=== PATIENT | female | born 2000 | race Caucasian/White ===

== ENCOUNTER 2024-03-06 17:30 | Emergency (ER) | payer SELFPAY ==
[2024-03-06 17:34] VITALS: BP 112/72
--- NOTE | 2024-03-06 19:34 | ED.GENMED ---
History of Present Illness
General
Chief Complaint: Skin Surface Trauma
Source: patient
Exam Limitations: none
Time Seen by Provider: 03/06/24 17:46
Nursing documentation reviewed up to this point in time: agreed with
Travel History
Have you had any contact with someone who has COVID-19?: No
Do you have any symptoms of coronavirus? Fever > 100 degrees, chills, cough, shortness of breath, sore throat, loss of taste or smell, muscle aches, or headache?: No
History of Present Illness
History of Present Illness:
pt is 24 y/o F with no pmh
here with heel pain after stepping on a crystal that she uses to mediate (it is a rock/gem)
she had pain in her heel ever since
she has not had any bleeding
tetanus is outdated
nothing taken for pain
denies that there were any needles around
Past History
Past History
ED Past Medical History: GERD, Psychiatric (Depression. PTSD) and Other (Migraines, chronic jaw pain)
ED Past Surgical History: Tonsilectomy (and adnoids)
Social History
Tobacco: Non-smoker
Alcohol: None
Drug: None
Personal: Single
Living: with family
Employment: Employed
Family History
Family History: Negative Diabetes
Review of Systems
Review of Systems
Allergies reviewed?: Yes
All Other Systems: Not applicable
Phy Exam
Physical Exam
Physical Exam:
GENERAL: Alert , in no apparent distress, comfortable at rest
HEAD: NCAT
CV: 2+
NEUROLOGICAL: Alert and oriented, no focal neuro deficits, , 5/5 strength, sensation intact,
SKIN: Warm and dry, puncture woundvery small
MUSCULOSKELETAL: heel puncture wound no cellulitis, no redness, no drainage
mild tenderness
PSYCH: Normal and appropriate interaction.
Course
Orders/Labs/Results
Orders:
Orders
03/06/24 17:33
Heel, Right 2 View [CR Heel/os [place] - Right 2 Vw] Urgent
Comment:
Reason For Exam: possible foreign body
03/06/24 19:39
Cephalexin Monohydrate [Keflex] 500 mg PO NOW STA
Ibuprofen [Motrin] 600 mg PO NOW STA
Tetanus/Diphth/Acelpertussis [Adacel] 0.5 ml IM .ONCE ONE
Vital Signs
Initial and Last Documented VS:
Initial Vital Signs
Temp Pulse Resp BP Pulse Ox
98.5 F 82 18 112/72 96
03/06/24 17:34 03/06/24 17:34 03/06/24 17:34 03/06/24 17:34 03/06/24 17:34
Last Documented Vital Signs
Temp Pulse Resp BP Pulse Ox
98.5 F 78 18 112/72 99
03/06/24 17:34 03/06/24 20:57 03/06/24 20:57 03/06/24 17:34 03/06/24 20:57
Procedures
Foreign Body Removal-Skin
Wound explored and foreign body removed?: No
Anesthesia: local
Foreign body removed using: forceps, incision and unable to locate FB
Foreign body removed: none removed
MDM/Problems Addressed
Differential Diagnosis Includes:
foreing body, puncture wound
MDM/Problems Addressed:
24 y/o F
no pmh
here with heel pain after stepping on a stone/gem she uses to meditate with
she was unaware of any needles or otherwise fb on the grond but stepped on the gem and felt pain and then had pain with walking which is what brought her in
small puncture wound in the center of her heel
xray showed a linear density in the soft tissue that could represent a fb
pt verbally consented to allow me to attempt to remove
i extended the puncture wound slightly and probed but unforutuantely despite using US and getting 2nd opinion with ED attending dr. briceno, unable to locate the FB
pt instructed to soak in warm water a few times a day
keflex abx (was not puncture through a shoe)
tetanus udated
f/u with podiatry
*Critical Care Note
Total Time (30-74mins, 75-104mins- exclusive of procedures): Not Applicable
ED Attending Note
-
Portions of this chart may have been created with voice recognition software.� Occasional wrong word or��sound alike� substitutions may have occurred due to the inherent limitations of voice recognition software.
Discharge Plan
Departure
Patient Disposition: Home (Routine Discharge)
Date of Disposition: 03/06/24
Time of Disposition: 19:40
Patient with high blood pressure during this ER visit?: No
Condition: Fair
Covid-19: Not Applicable
Discharge Problem:
Puncture wound of plantar aspect of foot, Foreign body in foot
Instructions: Wound Care (DC), Foreign Body in Skin (DC)
Prescriptions:
New
cephalexin 500 mg capsule
500 mg PO Q8H Qty: 21 0RF
No Action
ibuprofen 600 mg Tablet
600 mg PO Q6HPRN PRN (Reason: moderate pain/cramps) 30 Days Qty: 5 0RF
oxymetazoline [Nasal Decongestant (oxymetazl)] 0.05 % [place],Non-Aerosol
2 spray intranasal BID 3 Days Qty: 1 0RF
Saline Nasal 0.65 % Aerosol,[place]
2 spray intranasal QIDPRN PRN (Reason: dryness) Qty: 1 0RF
prednisone 10 mg tablet
10 mg PO DIRECTED Qty: 32 0RF
Rx Instructions:
4 a day x5days, then 2/day x3days, then 1/day x3days, then 1 every other day x3 doses. start tomorrow.
prazosin 1 mg Capsule
1 mg PO HS 30 Days Qty: 30 1RF
Referrals:
[facility] [Outside[facility] - Follow up in 1 week
Garry Lozano DPM [Active] - Follow up in 1 week
UNKNOWN - PT DOES,NOT KNOW [Family Provider] -
Stand Alone Forms: Return to Work
Activity Restrictions/Additional Instructions:
UNFORTUNATELY YOU MAY STILL HAVE THE FOREIGN BODY IN YUOR FOOT WE SAW ON XRAY
SOAK A FEW TIMES A DAY IN SALINE OR WARM WATER
TO SEE IF IT WILL COME OUT
TAKE KEFLEX 3 TIMES A DAY FOR 7 DAYS TO PREVENT INFECTION
TAKE TYLENOL AND MOTRIN FOR PAIN NEEDED
WATCH FOR SIGNS OF INFECTION
YOU SHOULD FOLLOW UP WITH A ORTHO PEDIST OR FOOT DOCTOR TO SEE IF THEY CAN REMOVE THE FOREIGN BODY
WALK WITH CRUTCHES NEEDED TO AVOID WEIGHT BEARING
Interventions
Interventions:
*Risk Screen - Suicide Last Done: 03/06/24 17:34
*General Assessment Last Done: 03/06/24 17:34
*Neglect/Abuse Screening Last Done: 03/06/24 17:34
ED- Fall Risk Assessment Last Done: 03/06/24 18:04
*ED COVID-19 Vaccine History Last Done: 03/06/24 17:34
*Nursing Disposition Last Done: 03/06/24 20:57
ED-Skin Assessment Last Done: 03/06/24 18:04
Discharge Date and Time
Discharge Date/Time: 03/06/24 20:45
Print Language: SENEGALESE
[2024-03-06] MEDS: KEFLEX 500 MG PO (19:57)
[2024-03-06] MEDS: MOTRIN 600 MG PO (19:57)
[2024-03-06] MEDS: ADACEL 0.5 ML IM (19:58)
== END 2024-03-06 20:45 | disposition home or self-care (01) ==
LOC: EMR 17:30
PROVIDERS: EMERGENCY PHYSICIAN Emergency Medicine
DX: S91.331A Puncture wound without foreign body, right foot, initial encounter (principal); W45.8XXA Other foreign body or object entering through skin, initial encounter; Z23 Encounter for immunization
CPT/HCPCS: 99284; 90471; 73650; 90715

== ENCOUNTER 2024-03-19 23:48 | Emergency (ER) | payer SELFPAY ==
[2024-03-19 23:51] VITALS: BP 104/70
[2024-03-20 00:08] VITALS: BMI 18.0
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
[2024-03-20 00:34] LABS: HCG, Serum Qualitative Screen Negative
[2024-03-20 00:35] LABS: % Basophils 0.7 % (0-2); % Eosinophils 1.5 % (0-6); % Immature Granulocytes 0.9 % (0-0.5); % Monocytes 4.3 % (1.7-9.3); % Neutrophils 64.6 % (42.2-75.2); Absolute Basophils 0.1 10^3/uL (0-0.2); Absolute Eosinophils 0.1 10^3/uL (0-0.7); Absolute Immature Granulocytes 0.1 10^3/uL (0-0.05); Absolute Lymphocytes 1.9 10^3/uL (1.2-3.4); Absolute Monocytes 0.3 10^3/uL (0.1-0.6); Absolute Neutrophils 4.4 10^3/uL (1.4-6.5); Hemoglobin 14.6 g/dL (12.0-16.0); Mean Corp Hgb Conc. 34.8 g/dL (33.0-37.0); Mean Corpuscular Hgb 29.7 pg (27.0-31.0); Mean Corpuscular Volume 85.5 fL (81.0-99.0); Mean Platelet Volume 9.6 fL (7.4-10.4); Nucleated Red Blood Cells % 0 %; Platelet Count 261 10^3/uL (130-400); Red Blood Cell Count 4.91 10^6/uL (4.20-5.40); Red Cell Dist. Width 12.1 % (11.5-14.5); White Blood Cell Count 6.8 10^3/uL (4.8-10.8)
--- NOTE | 2024-03-20 00:45 | ED.GENMED ---
History of Present Illness
General
Chief Complaint: Wound Check/Suture Removal
Source: patient
Exam Limitations: none
Time Seen by Provider: 03/20/24 00:21
Travel History
Have you had any contact with someone who has COVID-19?: No
Do you have any symptoms of coronavirus? Fever > 100 degrees, chills, cough, shortness of breath, sore throat, loss of taste or smell, muscle aches, or headache?: No
History of Present Illness
History of Present Illness:
24-year-old female presents with suicidal ideation. Patient has thoughts of hanging herself. Patient also recently was evaluated for heel pain and it was suggested that there could be possible foreign body. She was written for antibiotics but she
states her insurance did not cover it so she did not take it. She was using ibuprofen. She did present with a dressing intact. The patient does report discomfort in the area but denies fevers or drainage. No other medical complaints
Past History
Past History
ED Past Medical History: GERD, Psychiatric (Depression. PTSD) and Other (Migraines, chronic jaw pain)
ED Past Surgical History: Tonsilectomy (and adnoids)
Social History
Tobacco: Non-smoker
Alcohol: None
Drug: None
Personal: Single
Living: with family
Employment: Employed
Phy Exam
Physical Exam
Physical Exam:
CONSTITUTIONAL Vital signs reviewed, Patient alert and oriented to person, place and time. Somewhat disheveled
HEAD atraumatic, normocephalic.
EYES eyelids normal to inspection, Extraocular muscles intact, Conjunctiva normal, Sclera normal.
NECK normal range of motion, Trachea midline, no jugular venous distention.
RESP no respiratory distress
BACK No obvious deformities
UPPER EXTREMITY Gross Range of motion normal, gross motor strength normal
LOWER EXTREMITY Gross range of motion normal, Gross motor strength normal. Healing wound to right calcaneus. Mild tenderness with no surrounding swelling, no drainage, no bleeding
NEURO Speech normal, No focal motor deficits include, [place] coma scale 15, Memory normal, Cranial Nerves intact to screening exam.
SKIN Skin warm, dry, and normal in color.
PSYCHIATRIC Patient oriented to person place and time, appears somewhat anxious.
Course
Orders/Labs/Results
Orders:
Orders
03/20/24 00:06
Crisis Consult Urgent
Reason for Consult: pt suicidal
1:1 Observation - Suicide/ Violent Behavior As Directed
03/20/24 00:14
Test Result ONCE
03/20/24 00:15
Alcohol Urgent
Basic Metabolic Panel Urgent
Complete Blood Count/With Diff Urgent
HCG, Serum Qualitative Screen Urgent
03/20/24 00:38
Heel, Right 2 View [CR Heel/os [place]cis - Right 2 Vw] Urgent
Comment:
Reason For Exam: possible foreign body
03/20/24 01:29
Urine Drug Abuse Screen Urgent
Abnormal Lab Results
03/20/24
00:15
Abs Immat Gran (auto) 0.1 H 10^3/uL
(0-0.05)
Immature Gran % 0.9 H %
(0-0.5)
03/20/24 00:15
03/20/24 00:15
Vital Signs
Initial and Last Documented VS:
Initial Vital Signs
Temp Pulse Resp BP Pulse Ox
98.1 F 68 16 104/70 96
03/19/24 23:51 03/19/24 23:51 03/19/24 23:51 03/19/24 23:51 03/19/24 23:51
Last Documented Vital Signs
Temp Pulse Resp BP Pulse Ox
98.1 F 68 16 104/70 96
03/19/24 23:51 03/19/24 23:51 03/19/24 23:51 03/19/24 23:51 03/19/24 23:51
MDM/Problems Addressed
MDM/Problems Addressed:
Right foot wound, major depression, suicidal ideation
*Pulse Oximetry
Patient hypoxic: no
*Critical Care Note
Total Time (30-74mins, 75-104mins- exclusive of procedures): Not Applicable
Data Reviewed
Review of Other/Old Records Reveals: Records (Prior psychiatric March 2023 reviewed)
Source: patient
Prescriptions/Medications Considered But Not Given:
Considered antibiotics but no white count, no drainage, no redness
Patient Management
Escalation/DeEscalation of care consider admission/obs:
No foreign body noted by imaging. No sign of infection. Cleared for crisis.
ED Attending Note
-
Portions of this chart may have been created with voice recognition software.� Occasional wrong word or��sound alike� substitutions may have occurred due to the inherent limitations of voice recognition software.
Discharge Plan
Departure
Patient Disposition: [facility]
Date of Disposition: 03/20/24
Time of Disposition: :
Discharge Problem:
Wound of foot, Feeling suicidal
Prescriptions:
No Action
ibuprofen 600 mg Tablet
600 mg PO Q6HPRN PRN (Reason: moderate pain/cramps) 30 Days Qty: 5 0RF
Referrals:
NONE,* [Family Provider] -
Interventions
Interventions:
*Risk Screen - Suicide Last Done: 03/20/24 00:04
*General Assessment Last Done: 03/20/24 00:04
*Neglect/Abuse Screening Last Done: 03/20/24 00:04
ED- Fall Risk Assessment Last Done: 03/20/24 00:23
*ED COVID-19 Vaccine History Last Done: 03/20/24 00:04
ED-Psychological Assessment Last Done: 03/20/24 00:23
ED-Skin Assessment Last Done: 03/20/24 00:23
Discharge Date and Time
Print Language: BOLIVIAN
[2024-03-20 00:49] LABS: Blood Urea Nitrogen 13 mg/dl (7-17); Calcium 9.6 mg/dl (8.4-10.2); Carbon Dioxide 25 mmol/L (22-30); Chloride 102 mmol/L (98-107); Estimated Creatinine Clearance 100 ml/min; Glucose 85 mg/dl (70-99); Sodium 135 mmol/L (135-145); eGFR > 60.00
[2024-03-20 00:53] LABS: Alcohol None Detected
[2024-03-20 02:30] LABS: Amphetamines Negative (Negative); Barbiturates Negative (Negative); Benzodiazepines Negative (Negative); Buprenorphine Negative (Negative); Cocaine Negative (Negative); Marijuana Positive (Negative); Methadone Negative (Negative); Methamphetamines Negative (Negative); Opiates Negative (Negative); Phencyclidine Negative (Negative); Tricyclic Antidepressants Negative (Negative)
== END 2024-03-20 01:48 ==
LOC: EMR 23:48
PROVIDERS: EMERGENCY PHYSICIAN Emergency Medicine
DX: R45.851 Suicidal ideations (principal); S91.301A Unspecified open wound, right foot, initial encounter; X58.XXXA Exposure to other specified factors, initial encounter; F32.A Depression, unspecified; K21.9 Gastro-esophageal reflux disease without esophagitis; F43.10 Post-traumatic stress disorder, unspecified; G43.909 Migraine, unspecified, not intractable, without status migrainosus; G89.29 Other chronic pain; R68.84 Jaw pain
CPT/HCPCS: 99284; 73650; 80048; 80306; 82077; 84703; 85025

== ENCOUNTER 2024-09-22 21:11 | Emergency (ER) | payer OTHER, SELFPAY ==
[2024-09-22 21:16] VITALS: BP 132/83
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
[2024-09-22] MEDS: MOTRIN 600 MG PO (23:20)
== END 2024-09-22 23:27 | disposition home or self-care (01) ==
LOC: EMR 21:11
PROVIDERS: EMERGENCY PHYSICIAN Emergency Medicine
DX: S93.402A Sprain of unspecified ligament of left ankle, initial encounter (principal); X50.1XXA Overexertion from prolonged static or awkward postures, initial encounter; K21.9 Gastro-esophageal reflux disease without esophagitis; F32.A Depression, unspecified; F43.10 Post-traumatic stress disorder, unspecified; Y93.01 Activity, walking, marching and hiking
CPT/HCPCS: 99283; 73610

== ENCOUNTER 2025-01-13 20:22 | Emergency (ER) | payer OTHER, SELFPAY ==
[2025-01-13 20:25] VITALS: BP 143/90
[2025-01-13 20:48] VITALS: BMI 19.2
--- NOTE | 2025-01-13 21:29 | ED.GENMED ---
History of Present Illness
General
Chief Complaint: Musculo-Skeletal Complaint
Time Seen by Provider: 01/13/25 20:54
History of Present Illness
History of Present Illness:
24-year-old female presents the emergency department for evaluation of right knee pain has been ongoing for the past several days. Occasionally wakes up at night and has difficulty moving the knee. Denies any falls or trauma. She is able to
ambulate for the majority the day without pain but it seems to worsen going up and down stairs. Works at [employer] and is on her feet all day
Past History
Past History
ED Past Medical History: GERD, Psychiatric (Depression. PTSD) and Other (Migraines, chronic jaw pain)
ED Past Surgical History: Tonsilectomy (and adnoids)
Social History
Tobacco: Non-smoker
Alcohol: None
Drug: None
Personal: Single
Living: with family
Employment: Employed
Family History
Family History: Negative Diabetes
Review of Systems
Review of Systems
Allergies reviewed?: Yes
All Other Systems: ROS reviewed and negative except as documented in HPI and ROS
Phy Exam
Physical Exam
Physical Exam:
GEN: Well appearing, NAD, WDWN
HEENT: Oral mucosa moist, no scleral icterus
Cardiac: Regular rate
Lung: No respiratory distress, no tachypnea
MSK: No gross deformity or injuries, right knee range of motion normal, no patellar tendon tenderness, no crepitus
Skin: Good color, no pallor or jaundice, no rashes
Neuro: AO x3, moves all extremities freely
Psych: Calm, cooperative
Course
Orders/Labs/Results
Orders:
Orders
01/13/25 20:23
Knee, Right 4 or More Views [CR Knee- Right 4 Or More View*] Urgent
Comment:
Reason For Exam: pain
Vital Signs
Initial and Last Documented VS:
Initial Vital Signs
Temp Pulse Resp BP Pulse Ox
98.2 F 101 20 143/90 99
01/13/25 20:25 01/13/25 20:25 01/13/25 20:25 01/13/25 20:25 01/13/25 20:25
Last Documented Vital Signs
Temp Pulse Resp BP Pulse Ox
98.2 F 101 20 143/90 99
01/13/25 20:25 01/13/25 20:25 01/13/25 20:25 01/13/25 20:25 01/13/25 20:25
MDM/Problems Addressed
MDM/Problems Addressed:
Likely overuse injury, questionable tendinitis, discussed supportive care
*Critical Care Note
Total Time (30-74mins, 75-104mins- exclusive of procedures): Not Applicable
ED Attending Note
-
Portions of this chart may have been created with voice recognition software.� Occasional wrong word or��sound alike� substitutions may have occurred due to the inherent limitations of voice recognition software.
Discharge Plan
Departure
Patient Disposition: Home (Routine Discharge)
Date of Disposition: 01/13/25
Time of Disposition: 21:31
Patient with high blood pressure during this ER visit?: No
Discharge Problem:
Acute pain of right knee
Instructions: Knee Pain (DC)
Prescriptions:
New
celecoxib [Celebrex] 200 mg capsule
200 mg PO BID Qty: 14 0RF
No Action
ibuprofen 600 mg Tablet
600 mg PO Q6HPRN PRN (Reason: moderate pain/cramps) 30 Days Qty: 5 0RF
Interventions
Interventions:
*Risk Screen - Suicide Last Done: 01/13/25 20:50
*General Assessment Last Done: 01/13/25 20:25
*Neglect/Abuse Screening Last Done: 01/13/25 20:50
ED- Fall Risk Assessment Last Done: 01/13/25 20:49
*ED COVID-19 Vaccine History Last Done: 01/13/25 20:50
*Nursing Disposition Last Done: 01/13/25 21:44
ED-Musculoskeletal Assessment Last Done: 01/13/25 20:50
Discharge Date and Time
Discharge Date/Time: 01/13/25 21:44
Print Language: MALAY
== END 2025-01-13 21:44 | disposition home or self-care (01) ==
LOC: EMR 20:22
PROVIDERS: EMERGENCY PHYSICIAN Emergency Medicine
DX: M25.561 Pain in right knee (principal); K21.9 Gastro-esophageal reflux disease without esophagitis; F43.10 Post-traumatic stress disorder, unspecified
CPT/HCPCS: 99283; 73564

== ENCOUNTER 2025-03-12 17:41 | Emergency (ER) | payer OTHER, SELFPAY ==
[2025-03-12 17:43] VITALS: BP 101/68
[2025-03-12 17:57] LABS: % Basophils 0.7 % (0-2); % Eosinophils 2.1 % (0-6); % Immature Granulocytes 0.1 % (0-0.5); % Lymphocytes 30.7 % (20.5-51.1); % Neutrophils 62.4 % (42.2-75.2); Absolute Basophils 0.1 10^3/uL (0-0.2); Absolute Eosinophils 0.2 10^3/uL (0-0.7); Absolute Lymphocytes 2.1 10^3/uL (1.2-3.4); Absolute Monocytes 0.3 10^3/uL (0.1-0.6); Absolute Neutrophils 4.4 10^3/uL (1.4-6.5); Hemoglobin 13.9 g/dL (12.0-16.0); Mean Corp Hgb Conc. 33.9 g/dL (33.0-37.0); Mean Corpuscular Hgb 29.6 pg (27.0-31.0); Mean Corpuscular Volume 87.4 fL (81.0-99.0); Mean Platelet Volume 9.2 fL (7.4-10.4); Nucleated Red Blood Cells % 0 %; Platelet Count 214 10^3/uL (130-400); Red Blood Cell Count 4.69 10^6/uL (4.20-5.40); Red Cell Dist. Width 11.9 % (11.5-14.5)
[2025-03-12 18:04] LABS: HCG, Serum Qualitative Screen Negative
[2025-03-12 18:25] LABS: ALT (SGPT) 18 U/L (0-35); AST (SGOT) 21 U/L (14-36); Albumin 4.6 g/dl (3.5-5.0); Alkaline Phosphatase 61 U/L (38-126); Blood Urea Nitrogen 12 mg/dl (7-17); Carbon Dioxide 27 mmol/L (22-30); Chloride 104 mmol/L (98-107); Glucose 81 mg/dl (70-99); Potassium 4.3 mmol/L (3.5-5.1); Sodium 140 mmol/L (135-145); Total Protein 6.7 g/dl (6.3-8.2); eGFR > 60.00
--- NOTE | 2025-03-12 19:23 | ED.GENMED ---
History of Present Illness
General
Chief Complaint: Headache
Source: patient
Exam Limitations: none
Time Seen by Provider: 03/12/25 18:49
Nursing documentation reviewed up to this point in time: agreed with
History of Present Illness
History of Present Illness:
24-year-old female history of migraines presents with a migraine right sided lights bother her eyes she feels nauseous did not take any meds, similar to prior headaches, no fevers no trauma, no rash
Past History
Past History
ED Past Medical History: GERD, Psychiatric (Depression. PTSD) and Other (Migraines, chronic jaw pain)
ED Past Surgical History: Tonsilectomy (and adnoids)
Social History
Tobacco: Non-smoker
Alcohol: None
Drug: None
Personal: Single
Living: with family
Employment: Employed
Family History
Family History: Negative Diabetes
Review of Systems
Review of Systems
All Other Systems: Not applicable
Constitutional: Denies fever or fatigue
Respiratory: Reports no symptoms
Cardiac: Reports no symptoms
ABD/GI: Reports nausea
Neurological: Reports headache (Right sided headache)
Phy Exam
Physical Exam
Physical Exam:
Physical Exam
General: no apparent distress, mild distress but nontoxic
Neck: No jaundice
Heart: s1/s2 regular rate and rhythm, no murmur. equal radial pulses.
Lungs: no acute respiratory distress. clear bilaterally
Abdomen: Nontender
Neuro: alert and oriented. no focal neurological deficits
Skin: no rash
Psychiatric: well kept. interactive and cooperative
Extremities: no edema.
Course
Orders/Labs/Results
Orders:
Orders
03/12/25 17:45
Test Result ONCE
03/12/25 17:48
Complete Blood Count/With Diff Urgent
Comprehensive Metabolic Panel Urgent
HCG, Serum Qualitative Screen Urgent
03/12/25 19:09
Ondansetron Orally Disint [Zofran Odt (Orally Disintegrating)] 4 mg PO NOW STA
Sumatriptan Succinate [Imitrex] 6 mg SC NOW STA
03/12/25 17:48
03/12/25 17:48
Vital Signs
Initial and Last Documented VS:
Initial Vital Signs
Temp Pulse Resp BP Pulse Ox
98.3 F 77 16 101/68 98
03/12/25 17:43 03/12/25 17:43 03/12/25 17:43 03/12/25 17:43 03/12/25 17:43
Last Documented Vital Signs
Temp Pulse Resp BP Pulse Ox
98.3 F 77 16 101/68 98
03/12/25 17:43 03/12/25 17:43 03/12/25 17:43 03/12/25 17:43 03/12/25 17:43
MDM/Problems Addressed
Differential Diagnosis Includes:
Migraine tension cluster doubt HEAD BUCKER infection no trauma no rash
MDM/Problems Addressed:
Acute on chronic migraine
Chronic conditions affecting care:
Migraine
Acute Exacerbation and/or Progression of Chronic Illness:
Migraine
*Pulse Oximetry
Patient hypoxic: no
*Critical Care Note
Total Time (30-74mins, 75-104mins- exclusive of procedures): Not Applicable
Update Note
Update Note:
Update, will try Imitrex and Zofran
8:30 PM update patient feeling better
ED Attending Note
-
Portions of this chart may have been created with voice recognition software.� Occasional wrong word or��sound alike� substitutions may have occurred due to the inherent limitations of voice recognition software.
Discharge Plan
Departure
Patient Disposition: Home (Routine Discharge)
Date of Disposition: 03/12/25
Time of Disposition: 20:32
Patient with high blood pressure during this ER visit?: No
Condition: Good
Discharge Problem:
Migraine headache
Instructions: Migraines (DC)
Prescriptions:
New
sumatriptan succinate [Imitrex] 25 mg tablet
25 mg PO ONCE PRN (Reason: migraine headache) Qty: 20 0RF
ibuprofen 600 mg tablet
600 mg PO Q6H PRN (Reason: headache) Qty: 30 0RF
ondansetron 4 mg tablet,disintegrating
4 mg PO Q8H PRN (Reason: nausea and vomiting) Qty: 20 0RF
No Action
ibuprofen 600 mg Tablet
600 mg PO Q6HPRN PRN (Reason: moderate pain/cramps) 30 Days Qty: 5 0RF
celecoxib [Celebrex] 200 mg capsule
200 mg PO BID Qty: 14 0RF
Referrals:
Porfirio Olsen MD [Non-Admitting Privileges] -
NONE,* [Family Provider] -
Interventions
Interventions:
*Risk Screen - Suicide Last Done: 03/12/25 17:45
*General Assessment Last Done: 03/12/25 18:48
*Neglect/Abuse Screening Last Done: 03/12/25 17:45
*ED COVID-19 Vaccine History Last Done: 03/12/25 18:48
ED- Neurological Assessment Last Done: 03/12/25 18:48
Discharge Date and Time
Print Language: [id number]
[2025-03-12] MEDS: IMITREX 6 MG SC (19:41)
[2025-03-12] MEDS: ZOFRAN ODT (ORALLY DISINTEGRATING) 4 MG PO (19:42)
== END 2025-03-12 20:44 | disposition home or self-care (01) ==
LOC: EMR 17:41
PROVIDERS: Emergency Medicine; EMERGENCY PHYSICIAN Emergency Medicine
DX: G43.909 Migraine, unspecified, not intractable, without status migrainosus (principal)
CPT/HCPCS: 96372; 99284; 80053; 84703; 85025

== ENCOUNTER 2025-06-19 06:38 | Emergency (ER) | payer OTHER, SELFPAY ==
[2025-06-19 06:40] VITALS: BP 105/77
--- NOTE | 2025-06-19 07:31 | ED.GENMED ---
History of Present Illness
<Sallie Stein MD, Resident - Last Filed: 06/19/25 09:09>
General
Chief Complaint: Cough
Source: patient
Time Seen by Provider: 06/19/25 07:28
History of Present Illness
History of Present Illness:
25 year old female with a past medical history of migraines and GERD comes to the ED due to many months of lingering cough. She says that she has been dealing with this cough for 5-6 months and recently found out that she may have black mold in her
apartment. She has not had any fever or chills but does report having some nausea. She says that her eyes have been itchy and she has had a lingering chest tightness as well that can be sharp in nature.
Past History
<Sallie Stein MD, Resident - Last Filed: 06/19/25 09:09>
Past History
ED Past Medical History: GERD, Psychiatric (Depression. PTSD) and Other (Migraines, chronic jaw pain)
ED Past Surgical History: Tonsilectomy (and adnoids)
Social History
Tobacco: Non-smoker
Alcohol: None
Drug: None
Personal: Single
Living: with family
Employment: Employed
Family History
Family History: Negative Diabetes
Review of Systems
<Sallie Stein MD, Resident - Last Filed: 06/19/25 09:09>
Review of Systems
Constitutional: Reports fatigue; Denies fever or chills
EENT: Reports no symptoms
Respiratory: Reports cough; Denies trouble breathing
Cardiac: Reports chest pain
ABD/GI: Reports nausea
: Reports no symptoms
Musculoskeletal: Reports no symptoms
Skin: Reports no symptoms
Neurological: Reports no symptoms
Endocrine: Reports no symptoms
Hematologic/Lymphatic: Reports no symptoms
Psychiatric: Reports no symptoms
Phy Exam
<Sallie Stein MD, Resident - Last Filed: 06/19/25 09:09>
General Physical Exam
General Presentation: well appearing and no apparent distress
General Skin: warm and dry
General Mental: alert
General Hydration: appears well hydrated
Cardiovascular Exam
Cardiovascular Exam: regular rate/rhythm, no edema and no murmur
Pulmonary Exam
Pulmonary Exam: lungs clear, no respiratory distress, no rales, no crackles, no rhonchi and no wheezing
Course
<Sallie Stein MD, Resident - Last Filed: 06/19/25 09:09>
Orders/Labs/Results
Orders:
Orders
06/19/25 07:48
CR Chest - 2 Views Urgent
Comment:
Reason For Exam: Lingering cough
06/19/25 07:49
Electrocardiogram (*1) Urgent
Reason for Study: Chest Pain
06/19/25 07:50
EKG- Treatment ONCE
Vital Signs
Initial and Last Documented VS:
Initial Vital Signs
Temp Pulse Resp BP Pulse Ox
98.5 F 67 14 105/77 95
06/19/25 06:40 06/19/25 06:40 06/19/25 06:40 06/19/25 06:40 06/19/25 06:40
Last Documented Vital Signs
Temp Pulse Resp BP Pulse Ox
98.5 F 67 14 99/76 98
06/19/25 06:40 06/19/25 06:40 06/19/25 06:40 06/19/25 08:00 06/19/25 08:15
<Antonio Rm, DO - Last Filed: 06/19/25 09:03>
Orders/Labs/Results
Orders:
Orders
06/19/25 07:48
CR Chest - 2 Views Urgent
Comment:
Reason For Exam: Lingering cough
06/19/25 07:49
Electrocardiogram (*1) Urgent
Reason for Study: Chest Pain
06/19/25 07:50
EKG- Treatment ONCE
Vital Signs
Initial and Last Documented VS:
Initial Vital Signs
Temp Pulse Resp BP Pulse Ox
98.5 F 67 14 105/77 95
06/19/25 06:40 06/19/25 06:40 06/19/25 06:40 06/19/25 06:40 06/19/25 06:40
Last Documented Vital Signs
Temp Pulse Resp BP Pulse Ox
98.5 F 67 14 99/76 98
06/19/25 06:40 06/19/25 06:40 06/19/25 06:40 06/19/25 08:00 06/19/25 08:15
<Sallie Stein MD, Resident - Last Filed: 06/19/25 09:09>
MDM/Problems Addressed
Differential Diagnosis Includes:
Pneumonia, Anxiety, Seasonal Allergies
MDM/Problems Addressed:
Will get Chest X-Ray to rule out any acute pulmonary process including pneumonia (Patient says that there is no way she can be )
Will get EKG due to her chest tightness that is sharp in nature
<Sallie Stein MD, Resident - Last Filed: 06/19/25 09:09>
*Pulse Oximetry
SaO2: 95
Oxygen Mode of Delivery: Room air
Patient hypoxic: no
*Critical Care Note
Total Time (30-74mins, 75-104mins- exclusive of procedures): Not Applicable
<Sallie Stein MD, Resident - Last Filed: 06/19/25 09:09>
Update Note
Update Note:
CXR showed no acute cardiopulmonary process
EKG showed sinus bradycardia
Will discharge patient with prescription for Albuterol inhaler to use with acute episodes
Given instructions to follow up with PCP for outpatient follow up
ED Attending Note
<Sallie Stein MD, Resident - Last Filed: 06/19/25 09:09>
-
Portions of this chart may have been created with voice recognition software.� Occasional wrong word or��sound alike� substitutions may have occurred due to the inherent limitations of voice recognition software.
<Antonio Rm, - Last Filed: 06/19/25 09:03>
ED Attending Note
Patient seen and examined by attending physician: Yes
I performed the substantive portion of visit, reviewed & personally made and approve the management plan that is documented in note by myself or MADAI.: Yes
ED Attending Note:
I evaluated the patient at bedside. Her breath sounds are clear without wheeze. Blood pressure slightly low but she is of small stature. Chest x-ray clear. She does have episodes of some chest discomfort associated with a sensation of mucus. We
agreed to try an inhaler as an outpatient.
Discharge Plan
Departure
Patient Disposition: Home (Routine Discharge)
Date of Disposition: 06/19/25
Time of Disposition: 09:05
Patient with high blood pressure during this ER visit?: No
Discharge Problem:
Cough productive of yellow sputum
Instructions: Viral Upper Respiratory Infection, Adult (DC), Cough, Adult (DC)
Prescriptions:
New
albuterol sulfate [Ventolin HFA] 90 mcg/actuation HFA aerosol inhaler
1 puff inhalation ONCE Qty: 6.7 0RF
No Action
ibuprofen 600 mg Tablet
600 mg PO Q6HPRN PRN (Reason: moderate pain/cramps) 30 Days Qty: 5 0RF
sumatriptan succinate [Imitrex] 25 mg tablet
25 mg PO ONCE PRN (Reason: migraine headache) Qty: 20 0RF
Referrals:
UNKNOWN - PT DOES,NOT KNOW [Family Provider]
Interventions
Interventions:
*Risk Screen - Suicide Last Done: 06/19/25 06:40
*General Assessment Last Done: 06/19/25 07:36
*Neglect/Abuse Screening Last Done: 06/19/25 07:36
*ED- Fall Risk Assessment Last Done: 06/19/25 07:28
*ED COVID-19 Vaccine History Last Done: 06/19/25 07:28
ED- Pulmonary Assessment Last Done: 06/19/25 07:36
Discharge Date and Time
Print Language: SAMOAN
[2025-06-19 07:32] VITALS: BP 100/75
[2025-06-19 08:00] VITALS: BP 99/76
[2025-06-19 09:19] VITALS: BP 99/63
== END 2025-06-19 09:21 | disposition home or self-care (01) ==
LOC: EMR 06:38
PROVIDERS: EMERGENCY PHYSICIAN Emergency Medicine
DX: R05.9 Cough, unspecified (principal); G43.909 Migraine, unspecified, not intractable, without status migrainosus; K21.9 Gastro-esophageal reflux disease without esophagitis; F32.A Depression, unspecified; F43.10 Post-traumatic stress disorder, unspecified
CPT/HCPCS: 99284; 71046; 93005

== ENCOUNTER 2025-08-14 18:33 | Emergency (ER) | payer OTHER, SELFPAY ==
[2025-08-14 18:43] VITALS: BP 124/83
[2025-08-14 18:59] LABS: Hematocrit 42.1 % (37.0-47.0); Hemoglobin 14.2 g/dL (12.0-16.0); Mean Corp Hgb Conc. 33.7 g/dL (33.0-37.0); Mean Corpuscular Volume 87.7 fL (81.0-99.0); Nucleated Red Blood Cells % 0 %; Platelet Count 216 10^3/uL (130-400); Red Cell Dist. Width 12.4 % (11.5-14.5)
[2025-08-14 19:16] LABS: HCG, Serum Qualitative Screen Negative
[2025-08-14 19:17] LABS: ALT (SGPT) 19 U/L (0-35); AST (SGOT) 23 U/L (14-36); Albumin 4.9 g/dl (3.5-5.0); Alkaline Phosphatase 68 U/L (38-126); Blood Urea Nitrogen 16 mg/dl (7-17); Calcium 9.7 mg/dl (8.4-10.2); Carbon Dioxide 25 mmol/L (22-30); Chloride 104 mmol/L (98-107); Glucose 86 mg/dl (70-99); Potassium 3.9 mmol/L (3.5-5.1); Sodium 137 mmol/L (135-145); Total Protein 7.5 g/dl (6.3-8.2); eGFR > 60.00
== END 2025-08-14 20:36 | disposition left against medical advice (07) ==
LOC: EMR 18:33
PROVIDERS: Emergency Medicine
DX: Z53.21 Procedure and treatment not carried out due to patient leaving prior to being seen by health care provider (principal)
CPT/HCPCS: 80053; 84703; 85025

== ENCOUNTER 2025-08-16 12:16 | Emergency (ER) | payer OTHER, SELFPAY ==
[2025-08-16] VITALS (8 sets, daily range): BP systolic 99–111; BP diastolic 67–86; BMI 18.9
[2025-08-16] MEDS: TYLENOL 1000 MG PO (13:17)
--- NOTE | 2025-08-16 13:20 | ED.GENMED ---
History of Present Illness
<Kashif Royal PA-C - Last Filed: 08/16/25 16:27>
General
Chief Complaint: Vaginal Bleeding
Source: patient
Time Seen by Provider: 08/16/25 12:50
History of Present Illness
History of Present Illness:
25-year-old female with past medical history of anxiety and depression, borderline personality disorder, GERD presenting to the emergency department for evaluation of vaginal bleeding and lower abdominal cramping that started this past Wednesday
stating the bleeding will wax and wane from minimal to moderate size clots, today slightly worse prompting her to come into the ER. Patient states that she had her menstrual 2 weeks ago but believes there is a possibility she could be .
She did not take anything for the pain prior to arrival. Denies any other physical symptoms. She does note that her menstrual's are usually very regular, last 3 days and minimal bleeding.
Past History
<Kashif Royal PA-C - Last Filed: 08/16/25 16:27>
Past History
ED Past Medical History: GERD, Psychiatric (Depression. PTSD) and Other (Migraines, chronic jaw pain)
ED Past Surgical History: Tonsilectomy (and adnoids)
Social History
Tobacco: Non-smoker
Alcohol: None
Drug: None
Personal: Single
Living: with family
Employment: Employed
Family History
Family History: Negative Diabetes
Review of Systems
<Kashif Royal PA-C - Last Filed: 08/16/25 16:27>
Review of Systems
All Other Systems: ROS reviewed and negative except as documented in HPI and ROS
Phy Exam
<Kashif Royal PA-C - Last Filed: 08/16/25 16:27>
Physical Exam
Physical Exam:
GENERAL: Alert , in no apparent distress
EYE: clear conjunctiva b/l
HEAD: NCAT
ENT: o/p clr, mmm.
CARDIAC: Regular rate and rhythm .
LUNGS: Clear breath sounds bilaterally, no acute respiratory distress, no wheezes/rales/rhonchi
ABDOMEN: Soft, without focal tenderness, no r/g, no cvat
NEUROLOGICAL: Alert and oriented
SKIN: Warm and dry, skin intact.
MUSCULOSKELETAL: well perfused.
PSYCH: Normal and appropriate interaction.
Scores
<Kashif Royal PA-C - Last Filed: 08/16/25 16:27>
Heart Failure Risk
Heart Failure Risk Score: Not Applicable
Heart Score for Chest Pain Patients
STEMI patient?: Not applicable
Withdrawal Assessment of Alcohol
Withdrawal Assessment Completed?: Not applicable
Course
<Kashif Royal PA-C - Last Filed: 08/16/25 16:27>
Orders/Labs/Results
Orders:
Orders
08/16/25 12:57
Acetaminophen [Tylenol] 1,000 mg PO NOW STA
08/16/25 13:11
Blood Group&Type Urgent
Complete Blood Count/With Diff Urgent
Comprehensive Metabolic Panel Urgent
HCG, Beta Quantitative [Beta HCG Quantitative] Urgent
Is this a screen?: No
Urinalysis Reflex To Culture Urgent
Date Specimen was Collected: 08/16/25
Time Specimen was Collected: 13:00
Urine Microscopic Reflex Cult Urgent
08/16/25 13:47
US Transvaginal [US Pelvis W Transvag Combined] Urgent
Comment:
Reason For Exam: heavy bleeding
Abnormal Lab Results
08/16/25
13:11
Chloride 109 H mmol/L
(98-107)
Glucose 102 H mg/dl
(70-99)
Urine Bacteria (Reflex) Few A
(Negative)
Urine Albumin (Reflex) 1+ A
(Neg - Trace)
08/16/25 13:11
08/16/25 13:11
Vital Signs
Initial and Last Documented VS:
Initial Vital Signs
Temp Pulse Resp BP Pulse Ox
97.7 F 57 14 109/67 97
08/16/25 12:17 08/16/25 12:17 08/16/25 12:17 08/16/25 12:17 08/16/25 12:17
Last Documented Vital Signs
Temp Pulse Resp BP Pulse Ox
98 F 54 18 109/81 100
08/16/25 12:40 08/16/25 14:47 08/16/25 12:40 08/16/25 15:00 08/16/25 15:45
<Jeremy Chavez PA-C - Last Filed: 08/16/25 17:59>
Orders/Labs/Results
Orders:
Orders
08/16/25 12:57
Acetaminophen [Tylenol] 1,000 mg PO NOW STA
08/16/25 13:11
Blood Group&Type Urgent
Complete Blood Count/With Diff Urgent
Comprehensive Metabolic Panel Urgent
HCG, Beta Quantitative [Beta HCG Quantitative] Urgent
Is this a screen?: No
Urinalysis Reflex To Culture Urgent
Date Specimen was Collected: 08/16/25
Time Specimen was Collected: 13:00
Urine Microscopic Reflex Cult Urgent
08/16/25 13:47
US Transvaginal [US Pelvis W Transvag Combined] Urgent
Comment:
Reason For Exam: heavy bleeding
Abnormal Lab Results
08/16/25
13:11
Chloride 109 H mmol/L
(98-107)
Glucose 102 H mg/dl
(70-99)
Urine Bacteria (Reflex) Few A
(Negative)
Urine Albumin (Reflex) 1+ A
(Neg - Trace)
08/16/25 13:11
08/16/25 13:11
Vital Signs
Initial and Last Documented VS:
Initial Vital Signs
Temp Pulse Resp BP Pulse Ox
97.7 F 57 14 109/67 97
08/16/25 12:17 08/16/25 12:17 08/16/25 12:17 08/16/25 12:17 08/16/25 12:17
Last Documented Vital Signs
Temp Pulse Resp BP Pulse Ox
98 F 54 18 109/81 100
08/16/25 12:40 08/16/25 14:47 08/16/25 12:40 08/16/25 15:00 08/16/25 15:45
<Kashif Royal PA-C - Last Filed: 08/16/25 16:27>
MDM/Problems Addressed
Differential Diagnosis Includes:
Ectopic
Miscarriage
DUB
Ovarian Cyst
Anemia
MDM/Problems Addressed:
25-year-old female presenting to the ER for evaluation of vaginal bleeding that has been described to be mild to moderate, intermittently passing larger clots. Arrives hemodynamically stable and in no acute distress. Patient states there is a
possibility she could be . 2 previous pregnancies, no history of miscarriages, abortions or ectopic pregnancies. Will order imaging pending test
<Kashif Royal PA-C - Last Filed: 08/16/25 16:27>
*Pulse Oximetry
SaO2: 97
Oxygen Mode of Delivery: Room air
Patient hypoxic: no
*Plodding Operator Interpretation
Rate: normal
Heart Rate: 68
Rhythm: sinus
Data Reviewed
Review of Other/Old Records Reveals: Labs and Records
Source: patient and records
<Jeremy Chavez PA-C - Last Filed: 08/16/25 17:59>
*Critical Care Note
Total Time (30-74mins, 75-104mins- exclusive of procedures): Not Applicable
<Kashif Royal PA-C - Last Filed: 08/16/25 16:27>
Comment
Comment:
Patient presented to this ER 2 days ago for same complaint but left without treatment, triage had ordered labs at that time which were within normal limits including a negative test.
Patient's labs reassuring. Hemoglobin well within normal limits, urine without any infectious signs. Awaiting ultrasound imaging with anticipation of discharge home and outpatient follow-up with CUSTOMER DEVELOPMENT REPRESENTATIVE. Patient signed out to ASH[facility] Palmer for disposition
<Jeremy Chavez PA-C - Last Filed: 08/16/25 17:59>
Update Note
Update Note:
Received care of patient upon signout pending pelvic ultrasound. Ultrasound shows no obvious acute finding other than a small ovarian cyst. Reviewed results with the patient. Recommending follow-up with health assistant. Stable for discharge
ED Attending Note
<Kashif Royal PA-C - Last Filed: 08/16/25 16:27>
-
Portions of this chart may have been created with voice recognition software.� Occasional wrong word or��sound alike� substitutions may have occurred due to the inherent limitations of voice recognition software.
Discharge Plan
Departure
Patient Disposition: Home (Routine Discharge)
Date of Disposition: 08/16/25
Time of Disposition: 17:58
Patient with high blood pressure during this ER visit?: No
Discharge Problem:
Dysfunctional uterine bleeding
Instructions: Bleeding between periods
Prescriptions:
New
tranexamic acid 650 mg tablet
1,300 mg PO TID 5 Days Qty: 30 0RF
No Action
ibuprofen 600 mg Tablet
600 mg PO Q6HPRN PRN (Reason: moderate pain/cramps) 30 Days Qty: 5 0RF
sumatriptan succinate [Imitrex] 25 mg tablet
25 mg PO ONCE PRN (Reason: migraine headache) Qty: 20 0RF
albuterol sulfate [Ventolin HFA] 90 mcg/actuation HFA aerosol inhaler
1 puff inhalation ONCE Qty: 6.7 0RF
Referrals:
UNKNOWN - PT DOES,NOT KNOW [Family Provider]
Activity Restrictions/Additional Instructions:
Take medication as prescribed and follow-up with her health assistant for further evaluation. Return if worse
Interventions
Interventions:
*Risk Screen - Suicide Last Done: 08/16/25 12:45
*General Assessment Last Done: 08/16/25 12:47
*Neglect/Abuse Screening Last Done: 08/16/25 12:17
*ED- Fall Risk Assessment Last Done: 08/16/25 12:46
*ED COVID-19 Vaccine History Last Done: 08/16/25 12:17
ED-Female Genitourinary Assessment Last Done: 08/16/25 12:51
Discharge Date and Time
Print Language: MONGOLIAN
[2025-08-16 13:21] LABS: Hematocrit 39.9 % (37.0-47.0); Hemoglobin 13.6 g/dL (12.0-16.0); Mean Corp Hgb Conc. 34.1 g/dL (33.0-37.0); Mean Corpuscular Volume 88.3 fL (81.0-99.0); Nucleated Red Blood Cells % 0 %; Platelet Count 188 10^3/uL (130-400); Red Cell Dist. Width 12.4 % (11.5-14.5)
[2025-08-16 13:35] LABS: ALT (SGPT) 17 U/L (0-35); AST (SGOT) 19 U/L (14-36); Albumin 4.5 g/dl (3.5-5.0); Alkaline Phosphatase 52 U/L (38-126); Blood Urea Nitrogen 17 mg/dl (7-17); Calcium 8.9 mg/dl (8.4-10.2); Carbon Dioxide 24 mmol/L (22-30); Chloride 109 mmol/L (98-107); Estimated Creatinine Clearance 76 ml/min; Glucose 102 mg/dl (70-99); Potassium 4.3 mmol/L (3.5-5.1); Sodium 139 mmol/L (135-145); Total Protein 6.9 g/dl (6.3-8.2); eGFR > 60.00
[2025-08-16 13:41] LABS: Urine Character Clear (Clear)
[2025-08-16 13:52] LABS: Beta HCG Quantitative < 2.39 mIU/ml
[2025-08-16 14:06] LABS: Urine Red Blood Cell 0-2 /HPF (0-2); Urine Squamous Cell 21-25 /LPF (Few); Urine White Cell 0-2 /HPF (0-5)
== END 2025-08-16 18:12 | disposition home or self-care (01) ==
LOC: EMR 12:16
PROVIDERS: Physician Assistant Medical; EMERGENCY PHYSICIAN Emergency Medicine
DX: N93.8 Other specified abnormal uterine and vaginal bleeding (principal); N83.292 Other ovarian cyst, left side; F41.9 Anxiety disorder, unspecified; F32.A Depression, unspecified; F60.3 Borderline personality disorder; F43.10 Post-traumatic stress disorder, unspecified; K21.9 Gastro-esophageal reflux disease without esophagitis; R68.84 Jaw pain; G89.29 Other chronic pain
CPT/HCPCS: 99284; 76830; 76856; 80053; 81003; 81015; 84702; 85025; 86900; 86901